=== PATIENT | male | born 1980 | race Hispanic/Latino ===

== ENCOUNTER 2018-02-06 12:40 | Emergency (ER) | payer SELFPAY ==
[2018-02-06 13:07] LABS: APPEARANCE,URINE Clear (CLEAR); BILIRUBIN,URINE Negative (NEGATIVE); COLOR,URINE Yellow (YELLOW); GLUCOSE, URINE (UA) Negative (NEGATIVE); KETONES,URINE Negative (NEGATIVE); LEUKOCYTE ESTERASE ,URINE Negative (NEGATIVE); NITRATE,URINE Negative (NEGATIVE); OCCULT BLOOD,URINE Negative (NEGATIVE); PROTEIN,URINE Negative (NEGATIVE); UROBILINOGEN,URINE 0.2 mg/dL (0.2-1.0)
[2018-02-06] MEDS ORDERED: ONDANSETRON ODT 4 MG TAB ONE (14:02)
[2018-02-06] MEDS ORDERED: KETOROLAC TROMETHAMINE 60 MG/2 ML VIAL ONE (14:02)
== END 2018-02-06 15:29 | disposition home or self-care (01) ==
LOC: EDH 12:40
DX: M54.5 Low back pain (principal); M62.838 Other muscle spasm; K21.9 Gastro-esophageal reflux disease without esophagitis
CPT/HCPCS: 72100; 81003; 96372; 99285; J1885

== ENCOUNTER 2024-07-27 02:06 | Emergency (ER) | payer SELFPAY ==
[~2024-07-27] VITALS: Ht 175.3 cm; Wt 98.0 kg
[2024-07-27 02:09] VITALS: TEMP 98.6
--- NOTE | 2024-07-27 02:51 | ERN ---
ED Note History of Present Illness Stated Complaint: C/O LEFT SHOULDER PAIN Chief Complaint: Shoulder Injury/Pain Time Seen by MD: 02:10 Time Seen by Midlevel: 02:10 Dictation: The patient is a 44-year-old male with a history of asthma who presents to the emergency department with complaints of left shoulder pain for 12 days. Patient denies any trauma but reports lifting weights. Denies any chest pain or shortness of breath. Allergies: Coded Allergies: No Known Allergies (Unverified Allergy, Unknown, 07/27/24) Past Medical History Past Medical History: Asthma Surgical History: None RN Note Reviewed/Agreed w/PFSH: Yes Review of System Dictation Constitutional: Negative for fever,chills, and weight loss Eyes: Negative for injury, pain,redness, and discharge ENT: Negative for injury,pain or swelling Cardiovascular: Negative for chest pain, palpitations, and edema Respiratory: Negative for shortness of breath, cough, and wheezing, Abdomen/GI: Negative for abdominal pain, nausea, vomiting, diarrhea, and constipation Back: Negative for injury and pain : Negative for injury, bleeding and discharge MS/Extremity: Negative for injury and deformity left shoulder pain Skin: Negative for rash, and discoloration Neuro: Negative for headache, weakness, numbness, tingling, and seizure Psych: Negative for suicide ideation, homicidal ideation, and hallucinations Initial Vital Sign VS Vital Signs Date Time Temp Pulse Resp B/P (MAP) Pulse Ox O2 Delivery O2 Flow Rate FiO2 07/27/24 02:09 98.6 79 20 148/80 97 Room Air 07/27/24 02:59 0 21 Physical Exam Dictation General: awake, alert, NAD Head/Face: Normocephalic, atraumatic Eyes: PERRL, EOMI, vision at baseline ENT: oral cavity clear, TMs clear, no signs of infection Neck: Trachea midline, supple, no nuchal rigidity Cardiovascular: RRR, normal S1/S2, No MRGs, no JVD Respiratory: CTAB, no respiratory distress, No rales or wheezes Abdomen: Soft, non-tender, non-distended, normal bowel sounds, no guarding or rebound. Skin: Warm, dry, normal turgor, no rash MS/Extremity: Pulses equal, no cyanosis, neurovascular intact, FROM Neuro: COAx4, GCS 15, strength 5/5, CN 2-12 intact, normal cerebellar exam, normal gait, Psych: Normal behavior, mood, and affect normal Results (Laboratory/Radiology) Labs Reviewed?: Yes EKG: (+) rhythm (Sinus rhythm), (+) NC (158), (+) QRS (24) EKG Comment: EKG 07/24/2024 0248 ventricular rate 72, regular rate and rhythm: Normal sinus rhythm, no STEMI ED Course ED Course Orders Procedure Category Date Status Time Shoulder Comp 2+Vws Lt RAD 07/27/24 Taken 02:45 12 Lead Ekg Tracing- EKG 07/27/24 Logged Technical 02:45 Orphenadrine Citrate PHA 07/27/24 Complete (Norflex) 03:00 Triamcinolone Acet PHA 07/27/24 Complete 40mg/Ml 1ml (Kenalog 03:00 Current Medications Medications (Trade) Dose Ordered Sig/Horacio Route PRN Reason Start Time Stop Time Status Last Admin Dose Admin Orphenadrine Citrate (Norflex) 60 mg ONCE ONCE IM 07/27/24 03:00 07/27/24 03:01 DC 07/27/24 03:07 Triamcinolone Acetonide (Kenalog 40) 40 mg ONCE ONCE IM 07/27/24 03:00 07/27/24 03:01 DC 07/27/24 03:09 Vital Signs Date Time Temp Pulse Resp B/P (MAP) Pulse Ox O2 Delivery O2 Flow Rate FiO2 07/27/24 02:59 74 18 138/85 98 Room Air* 0 21 07/27/24 02:09 98.6 79 20 148/80 97 Room Air Medical Decision Making MDM MDM: Differential diagnosis:shoulder strain,dislocation, The patient is a 44-year-old male with a history of asthma who presents to the emergency department with complaints of left shoulder pain for 12 days. Patient denies any trauma but reports lifting weights. Denies any chest pain or shortness of breath. DX & DISP Disposition: Discharge Departure Impression: Primary Impression: Left shoulder strain Condition: Stable Scripts Naproxen (Naproxen) 375 Mg Tablet. 375 MG PO BID for 10 Days, #14 TAB Prov: MAGDY DUARTE MD 07/27/24 Methocarbamol (Robaxin) 750 Mg Tab 1 TAB PO BID for 7 Days, #14 TAB 0 Refills Prov: MAGDY DUARTE MD 07/27/24 Additional Instructions: FOLLOW-UP WITH PRIMARY CARE PROVIDER IN 1 TO 2 DAYS. TAKE MEDICATIONS DIRECTED HERE IN THE EMERGENCY ROOM. OKAY TO CONTINUE HOME MEDICATIONS UNLESS OTHERWISE DISCUSSED DURING YOUR VISIT IN THE EMERGENCY ROOM TODAY. RETURN TO YOUR NEAREST EMERGENCY ROOM IF SYMPTOMS WORSEN OR IF THERE IS NO IMPROVEMENT. CALL 911 IF YOU NEED IMMEDIATE ASSISTANCE. TAKE TYLENOL [id number] NEEDED AND IF NO CONTRAINDICATIONS ARE PRESENT. INCREASE ORAL HYDRATION. A WOUND CULTURE OR URINE CULTURE WAS ORDERED HERE IN THE EMERGENCY ROOM DEPARTMENT PLEASE FOLLOW-UP WITH PRIMARY CARE PROVIDER AND ADVISE THEM TO GET REPEAT PORTS FROM OUR FACILITY. IF YOU HAD ANY ALYSSA WRAP/SPLINTS THAT WERE APPLIED HERE, PLEASE DO NOT REMOVE THEM UNTIL YOU SEE YOUR PRIMARY CARE OR SPECIALTY. Referrals: Referrals: PORSCHE GRAVES MD (PCP) BROOKE LOMELI MD Time of Disposition: 03:20 SALINA LANCASTER Jul 27, 2024 02:51 MAGDY DUARTE MD Jul 27, 2024 03:22
[2024-07-27 02:59] VITALS: BP 138/85; PULSE 74; RESP 18; O2SAT 98
[2024-07-27] MEDS: ORPHENADRINE 60MG/2ML IM ONE (03:07)
[2024-07-27] MEDS: TRIAMCINOLONE ACETONIDE 40 MG/ML 1ML VIAL IM ONE (03:09)
[2024-07-27] MEDS ORDERED: NAPR-1505 PO (03:21)
[2024-07-27] MEDS ORDERED: METH-662 PO (03:21)
--- NOTE | 2024-07-27 05:17 | EKG ---
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
--- NOTE | 2024-07-27 10:05 | HMCIMG ---
LEFT SHOULDER RADIOGRAPHS - 2-3 VIEWS INDICATION: Pain COMPARISON: None FINDINGS: No evidence for acute fracture or dislocation. Acromioclavicular and glenohumeral alignments are well maintained. Visible portions of the left clavicle are intact. IMPRESSION: No evidence for fracture or dislocation.
== END 2024-07-27 03:41 | disposition home or self-care (01) ==
LOC: EDH 02:06
DX: S46.812A Strain of other muscles, fascia and tendons at shoulder and upper arm level, left arm, initial encounter (principal); J45.909 Unspecified asthma, uncomplicated; X58.XXXA Exposure to other specified factors, initial encounter; Y93.89 Activity, other specified; Y92.89 Other specified places as the place of occurrence of the external cause; Y99.8 Other external cause status
CPT/HCPCS: 99284; 73030; 96372 ×2; 93005; J3301; J2360

== ENCOUNTER 2025-04-02 16:01 | Emergency (ER) | payer BC ==
[~2025-04-02] VITALS: Ht 175.3 cm; Wt 98.9 kg
[~2025-04-02 16:01] MED LIST: METH-662 PO; NAPR-1505 PO
--- NOTE | 2025-04-02 18:20 | HMCIMG ---
EXAM: CR right Shoulder, 3 View. CLINICAL HISTORY: PAIN COMPARISON: None provided. FINDINGS: BONES: No acute fracture or aggressive appearing osseous lesion. JOINTS: No dislocation. The joint spaces are normal. SOFT TISSUES: The soft tissues are unremarkable. IMPRESSION: No acute abnormality evident on examination of the right shoulder. No acute fracture or dislocation. /[place]
[2025-04-02 18:28] VITALS: BP 82/88; PULSE 88; RESP 18; TEMP 98.4; O2SAT 95
--- NOTE | 2025-04-02 18:28 | ERN ---
ED Note History of Present Illness Stated Complaint: LEFT SHOULDER/CLAVICLE PAIN Chief Complaint: Shoulder Injury/Pain Time Seen by MD: 16:08 Time Seen by Midlevel: 16:09 Dictation: 45-year-old male who presents to the emergency department due to reported having pain and discomfort to the left shoulder and mid left shoulder that began yesterday. He states that this is the 3rd time that it appears to him. Patient states that it primarily occurs after doing some shoulder shrug which is a type of exercise that he does with weights in the gym. He denies having sustained any blunt force trauma to the affected area. Patient states that the pain is primarily with certain particular movements. At this time, he rates his level of discomfort as a 3/10. Upon initial evaluation, the patient presents with a normal neurovascular examination. 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 Home Meds Active Scripts Naproxen (Naproxen) 375 Mg Tablet.dr, 375 MG PO BID for 10 Days, #14 TAB Prov:MAGDY DUARTE MD 07/27/24 Methocarbamol (Robaxin) 750 Mg Tab, 1 TAB PO BID for 7 Days, #14 TAB 0 Refills Prov:MAGDY DUARTE MD 07/27/24 Past Medical History Past Medical History: Asthma Surgical History: None RN Note Reviewed/Agreed w/PFSH: Yes Review of System Dictation MS/Extremity: Left shoulder pain Initial Vital Sign VS Vital Signs Date Time Temp Pulse Resp B/P (MAP) Pulse Ox O2 Delivery O2 Flow Rate FiO2 04/02/25 16:04 98.8 106 16 146/92 95 Room Air 0 04/02/25 17:28 21 Physical Exam Dictation General: awake, alert, NAD Head/Face: Normocephalic, atraumatic Eyes: PERRL, EOMI ENT: Oral mucosa moist Neck: Trachea midline, supple Cardiovascular: RRR, no edema Respiratory: Symmetrical, non-labored Abdomen: Soft, non-tender, non-distended, no guarding. Skin: Warm, dry, good turgor, no rash MS/Extremity: Pulses equal, no cyanosis, neurovascular intact, tenderness to the left mid shoulder. Neuro: COAx4, GCS 15, steady gait, Psych: Normal behavior, mood, and affect normal Results (Laboratory/Radiology) X-RAY Comment: Two-view x-ray of the left shoulder with no cortical anomalies or deformities as interpreted by me. ED Course ED Course Orders Procedure Category Date Status Time Shoulder Comp 2+Vws Lt RAD 04/02/25 Resulted 17:18 Ketorolac 60mg/2ml PHA 04/02/25 Complete (Toradol 60mg/2ml) 17:30 Dexamethasone 4mg/Ml PHA 04/02/25 Complete 1ml Vial (Dexametha 17:30 Current Medications Medications (Trade) Dose Ordered Sig/Horacio Route PRN Reason Start Time Stop Time Status Last Admin Dose Admin Dexamethasone Sodium Phosphate (dexaMETHasone 4MG/ML 1ML VIAL) 8 mg ONCE ONCE IM 04/02/25 17:30 04/02/25 17:31 DC Ketorolac Tromethamine (toRADol 60MG/ 2ML) 60 mg ONCE ONCE IM 04/02/25 17:30 04/02/25 17:31 DC Vital Signs Date Time Temp Pulse Resp B/P (MAP) Pulse Ox O2 Delivery O2 Flow Rate FiO2 04/02/25 17:28 98.4 92 18 137/88 96 Room Air* 0 21 04/02/25 16:04 98.8 106 16 146/92 95 Room Air 0 Medical Decision Making MDM MDM: Differential diagnosis: Shoulder sprain, clavicular fracture, shoulder strain. Rationale: Tests considered and ordered secondary to shared decision making include: Previous outside records reviewed: Old ER visits. Risk of complication and/or morbidity or mortality of patient management: None Medications-Per medication reconciliation Need for hospitalization: Patient does not meet criteria for hospitalization. Need for emergency major/minor surgery: No There are no social concerns with this patient. Prescription drug management Prescriptions will include symptomatic care Patient's prior external medical records from other ER visits were reviewed by me as indicated. Prior testing and results from previous visits were reviewed. Prior tests were taken into account with medical decision making and resource utilization, independent historian/historians were used to obtain complete medical history. I independently interpreted the test that were performed, results were reviewed by me and considered findings on radiology if ordered. Medical management and examination interpretation discussions were had by me with other qualified healthcare professionals as indicated for the patient's care. DX & DISP Disposition: Discharge Departure Impression: Primary Impression: Sprain of left shoulder Condition: Stable Referrals: PORSCHE GRAVES MD (PCP) Time of Disposition: 18:27 CHOLO NIXON Apr 02, 2025 18:28
== END 2025-04-02 18:31 | disposition home or self-care (01) ==
LOC: EDH 16:01
DX: S43.402A Unspecified sprain of left shoulder joint, initial encounter (principal); J45.909 Unspecified asthma, uncomplicated; Z79.899 Other long term (current) drug therapy; X58.XXXA Exposure to other specified factors, initial encounter; Y93.89 Activity, other specified; Y92.89 Other specified places as the place of occurrence of the external cause; Y99.8 Other external cause status
CPT/HCPCS: 73030; 99283